=== PATIENT | male | born 1985 | race African-American/Black ===

== ENCOUNTER 2017-07-07 09:53 | Emergency (ER) | payer MEDICAID ==
[~2017-07-07] VITALS: Ht 182.9 cm; Wt 99.0 kg
[2017-07-07 10:06] VITALS: BP 132/79
[2017-07-07] MEDS ORDERED: PREDNISONE 20MG TABLET PO ONE (11:30)
[2017-07-07] MEDS ORDERED: EPINEPHRINE 1:1000 1 MG/ML AMP SUBCUT ONE (11:30)
[2017-07-07] MEDS ORDERED: IPRATROPIUM/ALBUTEROL 0.5-3(2.5)MG/3ML NEB HHN ONE (11:30)
== END 2017-07-07 14:57 | disposition home or self-care (01) ==
LOC: ER 10:46
DX: M72.2 Plantar fascial fibromatosis (principal); J45.909 Unspecified asthma, uncomplicated; R06.02 Shortness of breath
CPT/HCPCS: 73630; 94640; 96372; 99284; J0171; J7512; Z7610; J7620

== ENCOUNTER 2020-01-03 18:49 | Emergency (ER) | payer MEDICAID ==
[~2020-01-03] VITALS: Ht 182.9 cm; Wt 78.0 kg
[2020-01-03 19:08] VITALS: BP 108/78
== END 2020-01-04 00:09 | disposition left against medical advice (07) ==
LOC: ER 19:18
DX: R22.0 Localized swelling, mass and lump, head (principal); Z53.21 Procedure and treatment not carried out due to patient leaving prior to being seen by health care provider